=== PATIENT | female | born 2000 | race African-American/Black ===

== ENCOUNTER → 2019-03-15 | Outpatient (CLI) | payer BC ==
[2019-03-15 15:56] LABS: Basophils # (auto) 0.1 uL; Eosinophils # (auto) 0 uL; Eosinophils % (auto) 0.3 % (0.0-7.0); Hematocrit 44.6 % (36.0-46.0); Hemoglobin 14.7 g/dL (12.2-16.2); Mean Corpuscular Hemoglobin 28.7 pg (28.0-32.0); Mean Corpuscular Hgb Conc. 32.9 g/dL (32.0-36.0); Mean Corpuscular Volume 87.1 fL (80.0-100.0); Monocytes # (auto) 0.5 uL; Monocytes % (auto) 7.9 % (0.0-12.0); Neutrophils # (auto) 3.6 uL; Neutrophils % (auto) 57.8 % (37.0-80.0); Nucleated Red Blood Cells % 0.1 %; Platelet Count (auto) 271 10^3/uL (140-450); Red Blood Cells 5.12 10^6/uL (4.0-5.20); Red Cell Distribution Width 14.1 % (11.8-14.3); White Blood Cell 6.2 10^3/uL (4.4-10.8)
[2019-03-15 16:37] LABS: Albumin 4.4 g/dL (3.4-5.0); BUN/Creatinine Ratio 12.9; Calcium 9.6 mg/dL (8.5-10.1)
[2019-03-15 16:42] LABS: Bilirubin, Total 1.2 mg/dL (0.2-1.0); Total Protein 8.5 g/dL (6.4-8.2)
== END | disposition home or self-care (01) ==
LOC: LAB 15:05
PROVIDERS: ATTEND Internal Medicine
DX: F41.9 Anxiety disorder, unspecified (principal)
CPT/HCPCS: 36415; 80053; 80061; 84443; 85025

== ENCOUNTER 2020-07-04 14:37 | Emergency (ER) | payer BC ==
[~2020-07-04] VITALS: Ht 152.4 cm; Wt 45.4 kg
[2020-07-04 14:47] VITALS: BP 122/65
== END 2020-07-04 16:59 | disposition home or self-care (01) ==
LOC: ER 14:37
DX: N63.0 Unspecified lump in unspecified breast (principal); N63.20 Unspecified lump in the left breast, unspecified quadrant; D24.2 Benign neoplasm of left breast
CPT/HCPCS: 76642